=== PATIENT | male | born 1960 | race Caucasian/White ===

== ENCOUNTER → 2018-06-25 16:17 | Outpatient (CLI) | payer OTHER, SELFPAY ==
[2018-06-25 17:50] LABS: PSA,Total - Annual Screen 1.05 ng/mL (0.00-4.00)
--- OUTSIDE RECORDS SUMMARY | 2018-09-27 05:09 | XMS RPT_ITS ---
:1960 Author Organization [facility] Care Team Providers Name Role Phone JOSÉ NGUYEN Attending Unavailable HERNÁN WALLER (EVAPORATOR) Attending Unavailable Jose Arias Attending Unavailable Jose Arias Referring Unavailable Haris Reyes Primary Care Unavailable PROBLEMS PROBLEMS No Problem Records FoundPROCEDURES PROCEDURES No Procedure Records FoundRESULTS RESULTS PSA,TOTAL - ANNUAL Collected: 06/25/2018 Status: F Source: [place] SCREEN 4:22 PM [facility] REPOSITORY TYPE CODE TESTS RESULT OUT OF RANGE REFERENCE UNITS LAB L501.9910 0.00-4.00 ng/mL Normal PSA,TOT 1.05 SCREEN Result Comment: This test was performed using the TPSA assay method for the [employer] chemistry system. Values obtained with different assay methods cannot be used interchangably. When changing PSA assays in the course of monitoring a patient, additional sequential testing should be carried out to confirm baseline values. Performed By: #### L501.9910 #### [facility] [address] [place], [address] CNOV Observed: 01/03/2018 Status: COMPLETED Source: [place] 9:00 AM [facility] REPOSITORY Office Visit (TALKMN) JOSEFA PHILLIPS ([id number]) 1960 M Date Time Provider Department 01/03/18 9:00 AM EHRNÁN WALLER (EVAPORATOR) TALKMN During your visit today, we recorded the following information about you: Hernán Waller, PHD CCC-EVAPORATOR, CCC/EVAPORATOR 01/03/2018 8:54 AM Signed [facility] Hernán Waller, Ph.D NAME: Josefa Phillips CLINIC NO: [id number] DATE OF SERVICE: January 03, 2018 IMPRESSION AND PLAN: Mr. 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 He has been asymptomatic, and voice has been stable. We have been following him for a leucoplakia patch on the right vocal fold. Stroboscopy shows that there is a small area of leukoplakia on the posterior aspect of the right vocal fold. This is less noticeable than it was in February 2017. Mucosal waves on the right side are significantly decreased, but have not changed as when compared with his previous exams. ? HISTORY OF PRESENT ILLNESS: This is a 57 year old patient seen in follow up. He is now close to 8 years following an endoscopic CO2 laser resection, for a right true vocal cord mass on Jul 06. 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 We last saw him in November 2015. 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 He states that his voice has been strong and stable. No changes in voice. He denies any symptoms. No dysphagia, no dyspnea, no sore throat, or otalgia. He continues with Prilosec 40mg once a day for reflux control. ? HNI - Voice Handicap Index: VHI Total Score : 29 (Score range: 0 - 120) VHI Physical Score : 14 (Score range: 0 - 40) VHI Functional Score : 9 (Score range: 0 - 40) VHI Emotional Score : 6 (Score range: 0 - 40) A higher score indicates greater voice disability. VOICE: Mildly hoarse and breathy, with mild strain. PAST MEDICAL HISTORY Diagnosis Date - Deviated septum - Malignant neoplasm of glottis (HCC) Current Outpatient Prescriptions on File Prior to Visit: Omeprazole 40 mg capsule Take 40 mg by mouth once daily. IMIPRAMINE HCL ORAL Take 1 tablet by mouth once daily. Omeprazole (PRILOSEC) 40 mg capsule Take 1 capsule by mouth twice daily. (Patient not taking: Reported on 01/03/2018 ) DOCOSAHEXANOIC ACID/EPA (FISH OIL ORAL) Take 1 capsule by mouth three times daily. doxazosin (CARDURA) 2 mg tablet Take 2 mg by mouth daily at bedtime. Benzonatate (TESSALON) 200 mg capsule Take 200 mg by mouth three times daily as needed for Cough. codeine-guaiFENesin (ROBITUSSIN AC) 10-100 mg/5 mL syrup Take 5-10 mL by mouth four times daily as needed for Cough. May cause drowsiness. multivitamin with minerals (MEN'S ONE DAILY) tablet Take 1 tablet by mouth once daily. CALCIUM CARBONATE/VITAMIN D3 (CALCIUM + D ORAL) Take by mouth once daily. No current facility-administered medications on file prior to visit. PROCEDURE: The patient was sprayed with 2% lidocaine and 1% phenylephrine. After an approximate amount of time for vasoconstriction and anesthesia to be achieved, a flexible fiberoptic laryngoscope was inserted into the nasal cavity, nasopharynx, down to the oropharynx. A laryngeal function study which included videoendoscopy with stroboscopy was performed. FINDINGS: Findings revealed that the epiglottis, AE folds, vallecula, and pyriform sinuses appeared normal. No cobblestoning or erythema was appreciated along the posterior oropharyngeal wall. Inspection of the larynx revealed that the subglottis was patent, no evidence of any stenosis was appreciated. Range of motion of the vocal folds is within normal limits bilaterally. He has a small area of leukoplakia on the posterior aspect of the right vocal fold. Mucosal waves on the right side are significantly decreased but consistent with previous exams. The scope was withdrawn and the patient tolerated the procedure well. ? I thoroughly reviewed the video with Josefa Phillips and Dr. Nguyen. ? Hernán Waller, PHD CCC-EVAPORATOR Theodora Lima 01/03/2018 8:54 AM Signed Intake information documented in the prior visit with Dr. Nguyen today. Referring Provider: SELF [200] Allergies As of Date: 01/03/2018 Noted Allergy Reaction LODINE (ETODOLAC) 06/24/2009 4 - Hives Comments: Joint pain Date Reviewed: 01/03/2018 Reviewed by: Luke (Rn) MYESHA Keene - Fully Assessed Primary Visit Diagnosis:Voice disturbance [R49.9] Other Visit Diagnosis:Carcinoma of true vocal cord (HCC) [C32.0] Prescriptions as of 01/03/2018 Sig: IMIPRAMINE HCL ORAL Take 1 tablet by mouth once d* OMEPRAZOLE 40 MG CAPSULE,MARYSOL* Take 1 capsule by mouth twice* Patient not taking: Reported on 01/03/2018 FISH OIL ORAL Take 1 capsule by mouth three* DOXAZOSIN 2 MG TABLET Take 2 mg by mouth daily at b* BENZONATATE 200 MG CAPSULE Take 200 mg by mouth three ti* CODEINE 10 MG-GUAIFENESIN 100* Take 5-10 mL by mouth four ti* MULTIVITAMIN WITH MINERALS TA* Take 1 tablet by mouth once d* * CALCIUM + D ORAL Take by mouth once daily. Problem List As Of Date 01/03/2018 Noted Resolved Carcinoma of True Vocal Cord [C32.0] INVALID FOR* History of laryngeal cancer [Z85.21] INVALID FOR* Voice disturbance [R49.9] INVALID FOR* Encounter Status:Closed by SRIDHAR BRAGA, HERNÁN on 01/03/18 CNOV Observed: 01/03/2018 Status: COMPLETED Source: [place] 8:45 AM [facility] REPOSITORY Office Visit (OTOLMN) JOSEFA PHILLIPS ([id number]) 1960 M Date Time Provider Department 01/03/18 8:45 AM JOSÉ NGUYEN OTNOE During your visit today, we recorded the following information about you: Luke Keene RN, RN 01/03/2018 8:18 AM Signed Tobacco Use: Never Was smoking cessation packet given? N/A - Patient is a non- smoker or quit >1 year ago. Was a referral initiated?N/A Patient is a non-smoker Referring Provider: SELF [200] Allergies As of Date: 01/03/2018 Noted Allergy Reaction LODINE (ETODOLAC) 06/24/2009 4 - Hives Comments: Joint pain Date Reviewed: 01/03/2018 Reviewed by: Luke Clark) MYESHA Keene - Fully Assessed Reason for Visit: Follow Up [171] Primary Visit Diagnosis:History of laryngeal cancer [Z85.21] Prescriptions as of 01/03/2018 Sig: OMEPRAZOLE 40 MG CAPSULE,MARYSOL* Take 40 mg by mouth once ericka* IMIPRAMINE HCL ORAL Take 1 tablet by mouth once d* FISH OIL ORAL Take 1 capsule by mouth three* DOXAZOSIN 2 MG TABLET Take 2 mg by mouth daily at b* MULTIVITAMIN WITH MINERALS TA* Take 1 tablet by mouth once d* * CALCIUM + D ORAL Take by mouth once daily. OMEPRAZOLE 40 MG CAPSULE,MARYSOL* Take 1 capsule by mouth twice* Patient not taking: Reported on 01/03/2018 BENZONATATE 200 MG CAPSULE Take 200 mg by mouth three ti* CODEINE 10 MG-GUAIFENESIN 100* Take 5-10 mL by mouth four ti* Medication notes this encounter DOXAZOSIN 2 MG TABLET >> Luke Keene RN, RN 01/03/2018 8:11 AM >> LUKE KEENE [facility] Jan 03, 2018 8:11 AM daily Problem List As Of Date 01/03/2018 Noted Resolved Carcinoma of True Vocal Cord [C32.0] INVALID FOR* History of laryngeal cancer [Z85.21] INVALID FOR* Voice disturbance [R49.9] INVALID FOR* Visit Notes: >> Luke Keene RN [facility] Jan 03, 2018 8:16 AM Status: Signed Tobacco Use: Never Was smoking cessation packet given? N/A - Patient is a non- smoker or quit >1 year ago. Was a referral initiated?N/A Patient is a non-smoker Encounter Status:Closed by JOSÉ NGUYEN MD on 01/04/18 PROGRESS Observed: 01/03/2018 Status: COMPLETED Source: [place] 8:29 AM [facility] [place] REPOSITORY O ID: [id number] Author: Theodora Lima Service: (none) Author Type: (none) Type: Progress Notes Filed: 01/03/2018 8:54 AM Note Text: Intake information documented in the prior visit with Dr. Nguyen today. PROGRESS Observed: 01/03/2018 Status: COMPLETED Source: [place] 8:27 AM [facility] REPOSITORY HNO ID: [id number] Author: Hernán (Lumber Inspector) MALENA Waller/TRIP Service: (none) Author Type: Speech Language Pathologist Type: Progress Notes Filed: 01/03/2018 8:54 AM Note Text: [facility] Hernán Waller, Ph.D NAME: Josefa Phillips [facility] NO: [id number] DATE OF SERVICE: January 03, 2018 IMPRESSION AND PLAN: Mr. 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 He has been asymptomatic, and voice has been stable. We have been following him for a leucoplakia patch on the right vocal fold. Stroboscopy shows that there is a small area of leukoplakia on the posterior aspect of the right vocal fold. This is less noticeable than it was in February 2017. Mucosal waves on the right side are significantly decreased, but have not changed as when compared with his previous exams. ? HISTORY OF PRESENT ILLNESS: This is a 57 year old patient seen in follow up. He is now close to 8 years following an endoscopic CO2 laser resection, for a right true vocal cord mass on Jul 06. 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 We last saw him in November 2015. 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 He states that his voice has been strong and stable. No changes in voice. He denies any symptoms. No dysphagia, no dyspnea, no sore throat, or otalgia. He continues with Prilosec 40mg once a day for reflux control. ? HNI - Voice Handicap Index: VHI Total Score : 29 (Score range: 0 - 120) VHI Physical Score : 14 (Score range: 0 - 40) VHI Functional Score : 9 (Score range: 0 - 40) VHI Emotional Score : 6 (Score range: 0 - 40) A higher score indicates greater voice disability. VOICE: Mildly hoarse and breathy, with mild strain. PAST MEDICAL HISTORY Diagnosis Date - Deviated septum - Malignant neoplasm of glottis (HCC) Current Outpatient Prescriptions on File Prior to Visit: Omeprazole 40 mg capsule Take 40 mg by mouth once daily. IMIPRAMINE HCL ORAL Take 1 tablet by mouth once daily. Omeprazole (PRILOSEC) 40 mg capsule Take 1 capsule by mouth twice daily. (Patient not taking: Reported on 01/03/2018 ) DOCOSAHEXANOIC ACID/EPA (FISH OIL ORAL) Take 1 capsule by mouth three times daily. doxazosin (CARDURA) 2 mg tablet Take 2 mg by mouth daily at bedtime. Benzonatate (TESSALON) 200 mg capsule Take 200 mg by mouth three times daily as needed for Cough. codeine-guaiFENesin (ROBITUSSIN AC) 10-100 mg/5 mL syrup Take 5-10 mL by mouth four times daily as needed for Cough. May cause drowsiness. multivitamin with minerals (MEN'S ONE DAILY) tablet Take 1 tablet by mouth once daily. CALCIUM CARBONATE/VITAMIN D3 (CALCIUM + D ORAL) Take by mouth once daily. No current facility-administered medications on file prior to visit. PROCEDURE: The patient was sprayed with 2% lidocaine and 1% phenylephrine. After an approximate amount of time for vasoconstriction and anesthesia to be achieved, a flexible fiberoptic laryngoscope was inserted into the nasal cavity, nasopharynx, down to the oropharynx. A laryngeal function study which included videoendoscopy with stroboscopy was performed. FINDINGS: Findings revealed that the epiglottis, AE folds, vallecula, and pyriform sinuses appeared normal. No cobblestoning or erythema was appreciated along the posterior oropharyngeal wall. Inspection of the larynx revealed that the subglottis was patent, no evidence of any stenosis was appreciated. Range of motion of the vocal folds is within normal limits bilaterally. He has a small area of leukoplakia on the posterior aspect of the right vocal fold. Mucosal waves on the right side are significantly decreased but consistent with previous exams. The scope was withdrawn and the patient tolerated the procedure well. ? I thoroughly reviewed the video with Josefa Phillips and Dr. Nguyen. ? Hernán Waller, PHD CCC-EVAPORATOR PROGRESS Observed: 01/03/2018 Status: COMPLETED Source: [place] 12:00 AM [facility] REPOSITORY HNO ID: [id number] Author: José Nguyen Service: (none) Author Type: Physician Type: Progress Notes Filed: 01/07/2018 7:36 AM Note Text: [facility] José Nguyen M.D. NAME: JOSEFA PHILLIPS CLINIC NO: [id number] DATE OF SERVICE: 01/03/2018 Chief Complaint Oncologic surveillance. History of Present Illness Mr. Phillips returns in followup. 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 It has now been nine years since his surgery. He is continuing to do very well. He is speaking well without difficulty. He feels his voice has been quite strong. Videostroboscopy performed by Dr. Waller was reviewed in his presence. Examination His examination remains stable. The very area where that had been superficial leukoplakia has been less pronounced. He does still have very good mucosal wave that is present, different than the normal left side but still quite good. Medical Decision Making Diagnosis 1. Treatment Plan We will continue to follow him back in one year unless he should have difficulties, then will see him at a sooner point in time. JOSÉ NGUYEN M.D. JS/[id number] Audio #: [id number] Date Dictated: 01/03/2018 09:15:24 Date Typed: 01/04/2018 12:24:58 Date Revised: ALLERGIES ALLERGIES DATE TYPE / CODE NAME / CODE REACTION SEVERITY SOURCE 06/24/2009 DRUG ETODOLAC HIVES [facility] INGREDI/419 [facility] [id number](SNOM Repository ED CT) ENCOUNTERS ENCOUNTERS ADMIT/DISCHARGE ACCOUNT ADMITTING ENCOUNTER LOCATION SOURCE NUMBER CLASS 06/25/2018 [id number] [facility] ing:LAB Repository 01/03/2018/01/04/[id number] Repository 01/03/2018/01/08/[id number] Repository PAYERS PAYERS ENCOUNTER GUARANTOR PAYER SUBSCRIBER SOURCE 06/25/2018 JOSEFA Pang Primary Insurance:NAREN PHILLIPS[address] [facility] CORINNEB: [facility] GASTONKRISSY FAUSTINO, Number: [id number] [facility] [address]Pme: [id number] Repository Date:[id number] [id number], [place] [address]GK: CHECK WEBSITE 06/25/2018 [facility] Number: Effective Repository Date:2018-06-25
== END ==
PROVIDERS: Family Provider Family Medicine; PCP Family Medicine; Referring Provider Urology; Visit Provider Urology
DX: Z12.5 Encounter for screening for malignant neoplasm of prostate (principal)
CPT/HCPCS: 36415; 84153; G0103

== ENCOUNTER → 2019-01-29 14:27 | Outpatient (CLI) | payer OTHER, SELFPAY ==
--- NOTE | 2019-01-29 11:45 | LES_PTH ---
PATIENT: SCOTTY ROBLES LOC: [facility] U#:[id number] AGE/SX: 64/M ROOM: RE01/29/[address]: Dr. Haris Reyes MD : 1960 BED: DIS: SPEC #: [id number] RECD: 01/29/19 14:10 STATUS: LIAM TATIANA #: [id number] ИВАН: 01/29/19 11:[address]: Haris Reyes DEPT: SURGICAL PATHOLOGY RECD BY: Efra Torres Tissues: Skin of upper extremity and shoulder Procedures: Surgery Specimen Level IV HEADER OPERATION: Right shoulder shave biopsy PRE-OP DIAGNOSIS: Basal cell CA TISSUE SUBMITTED: Right shoulder shave biopsy MICROSCOPIC DIAGNOSIS Right shoulder lesion, shave biopsy: Basal cell carcinoma, nodular type, appears to be narrowly excised in the planes of sections examined (0.5 cm in greatest width). RAQUEL:trudi 01/31/19 COMMENT Case has been reviewed in consultation with Dr. Gant who concurs with the above diagnosis. IDC:AM MICROSCOPIC DESCRIPTION Slides are reviewed. GROSS DESCRIPTION Received in fixative is one container labeled with the patient's name and designated right shoulder. The specimen consists of a piece of stone-white skin measuring 1 x 0.5 x 0.2 cm. The specimen is inked and submitted entirely in one cassette. It will be serially sectioned at the time of embedding. / SJ:rg 01/30/19 TC:0 [facility]: [id number]
== END ==
PROVIDERS: Family Provider Family Medicine; PCP Family Medicine; Referring Provider Family Medicine; Visit Provider Family Medicine
DX: C44.612 Basal cell carcinoma of skin of right upper limb, including shoulder (principal)
CPT/HCPCS: 88305

== ENCOUNTER → 2019-05-22 09:40 | Outpatient (CLI) | payer OTHER, SELFPAY ==
--- NOTE | 2019-05-22 09:44 | RAD_ITS ---
STUDY: X-RAY - RIGHT SHOULDER REASON FOR EXAM: Male, 58 years old. Neck pain radiating into the shoulders. TECHNIQUE: 4 view(s) of the shoulder. COMPARISON: None. FINDINGS: Normal glenohumeral articulation. There is degenerative arthrosis of the acromioclavicular joint without inferior osseous spur formation. Normal acromion. There is no acute fracture, dislocation or destructive osseous pathology. Normal humeral head and visualized proximal humerus. The soft tissue structures are unremarkable. Normal visualized pulmonary apex. RAD/Shoulder min 2 Views IMPRESSION: Degenerative changes of the acromioclavicular joint. Electronically Signed: Cricket Crandall DO at 18:45 EST Tel [phone], Service support ,
--- NOTE | 2019-05-22 09:44 | RAD_ITS ---
STUDY: X-RAY - LEFT SHOULDER REASON FOR EXAM: Male, 58 years old. Neck pain radiating into the shoulders. TECHNIQUE: 4 view(s) of the shoulder. COMPARISON: Left clavicle, February 17, 2016. FINDINGS: There is moderate degenerative arthrosis of the glenohumeral articulation. Normal acromioclavicular joint. Normal acromion. There is no acute fracture, dislocation or destructive osseous pathology. There is demineralization of the humerus and visualized osseous structures. The soft tissue structures are unremarkable. Normal visualized pulmonary apex. RAD/Shoulder min 2 Views IMPRESSION: Stable degenerative changes of the left shoulder. Electronically Signed: Cricket Crandall DO at 17:25 EST Tel [phone], Service support ,
--- NOTE | 2019-05-22 09:44 | RAD_ITS ---
STUDY: X-RAY - CERVICAL SPINE REASON FOR EXAM: Male, 58 years old. Neck pain. Pain in the right shoulder. TECHNIQUE: 5 view(s) of the cervical spine were obtained. COMPARISON: None FINDINGS: There are degenerative changes of the anterior atlantoaxial articulation. Normal odontoid process. Normal cervical lordosis. There is multi-level endplate spondylosis. There is multi-level degenerative disc disease with multilevel disc space narrowing. This is most marked at C3-4 and C5-C6. There is neural foraminal narrowing on the left at C5-6. No other neural foraminal narrowing is noted. There is no evidence of acute fracture or loss of vertebral axial height. There is maintenance of normal alignment. The soft tissue structures are unremarkable. RAD/Cerv Spine 4 or 5 Views IMPRESSION: Degenerative changes of the cervical spine, as above. Electronically Signed: Cricket Crandall DO at 17:03 EST Tel [phone], Service support ,
== END ==
PROVIDERS: Family Provider Family Medicine; PCP Family Medicine; Referring Provider Family Medicine; Visit Provider Family Medicine
DX: M50.30 Other cervical disc degeneration, unspecified cervical region (principal); M47.812 Spondylosis without myelopathy or radiculopathy, cervical region; M50.31 Other cervical disc degeneration, high cervical region; M48.02 Spinal stenosis, cervical region; M19.011 Primary osteoarthritis, right shoulder; M19.012 Primary osteoarthritis, left shoulder
CPT/HCPCS: 72050; 73030

== ENCOUNTER → 2019-06-04 07:06 | Outpatient (CLI) | payer OTHER, SELFPAY ==
--- NOTE | 2019-06-04 07:12 | MRI_ITS ---
STUDY: MRI CERVICAL SPINE WITHOUT CONTRAST REASON FOR EXAM: Male, 58 years old. Degenerative disc disease and radicular symptoms to the left shoulder TECHNIQUE: Standardized fat and water weighted pulse sequences were obtained in the sagittal and axial planes. COMPARISON: Radiographs of the cervical spine dated May 22, 2019. FINDINGS: Normal foramen magnum and brainstem-cervical cord junction. Normal craniovertebral junction. Normal anterior atlantoaxial articulation. Normal odontoid process. Normal cervical lordosis. There is decreased height of the C4 and C5 vertebral bodies probably related to mild old compression fractures. The vertebral segments otherwise have normal height and alignment. C2-3: Normal endplates. Normal disc height, signal and morphology. Normal central canal and intervertebral neural foramina. C3-4: There is narrowing of this disc. There is severe left-sided neural foraminal narrowing with potential nerve root impingement. The right neural foramen is moderately narrowed. There is uncovertebral and facet joint arthropathy. There is no appreciable central canal stenosis. C4-5: There is a broad left central disc protrusion. There is mild central acquired canal stenosis. There is severe left-sided neural foraminal narrowing with potential nerve impingement. There is uncovertebral facet joint arthropathy. C5-6: There is narrowing of this disc. There is a broad central disc protrusion and osteophyte complex. There is severe left-sided neural foraminal narrowing with probable neural impingement. The right neural foramen is moderately narrowed. There is mild central acquired canal stenosis. C6-7: Normal endplates. Normal disc height, signal and morphology. Normal central canal and intervertebral neural foramina. C7-T1: Normal endplates. Normal disc height, signal and morphology. Normal central canal and intervertebral neural foramina. Normal cervical cord. There is no demonstrated cervical cord syrinx cavity. Normal visualized soft tissue structures. MRI/Spine Cervical (Routine) IMPRESSION: Multilevel degenerative disc disease and degenerative arthropathy of the cervical spine with neural foraminal narrowing and acquired canal stenosis, as described. Electronically Signed: Shannon Rodriguez MD at 4:54 EST , Service support ,
== END ==
PROVIDERS: Family Provider Family Medicine; PCP Family Medicine; Referring Provider Family Medicine; Visit Provider Family Medicine
DX: M50.30 Other cervical disc degeneration, unspecified cervical region (principal); M48.02 Spinal stenosis, cervical region
CPT/HCPCS: 72141

== ENCOUNTER → 2019-06-26 12:01 | Outpatient (CLI) | payer OTHER, SELFPAY ==
[2019-06-26 13:24] LABS: PSA,Total - Annual Screen 1.07 ng/mL (0.00-4.00)
== END ==
PROVIDERS: Family Provider Family Medicine; PCP Family Medicine; Referring Provider Urology; Visit Provider Urology
DX: Z12.5 Encounter for screening for malignant neoplasm of prostate (principal)
CPT/HCPCS: 36415; 84153; G0103

== ENCOUNTER 2019-06-30 12:30 | Outpatient (RCR) | payer OTHER, SELFPAY ==
--- NOTE | 2019-06-13 16:19 | HP.PTEVAL_ITS ---
Patient's Visit Information SCOTTY ROBLES is a 58 year old M referred to Physical Therapy by Weston Reyes MD with a diagnosis of CERVICAL SPINE STENOSIS. Date of Evaluation: 06/13/19 Physical Therapist: Santana Gallego, PT, Cert MDT, OCS - Visit Plan Frequency: 2x /Week Duration: 4 Weeks Plan: PT INTERVENTIONS POSTURAL EXS/RTC STRENGTHENING,MODALTIES , (trail) ICTX 15#-22# X15 MIN ,SHOULDER RTC /SCAP STENGTHENING - Subjective Findings: This 58 y/o male presents to physical therapy with cervical stenosis . Patient has cervical radiculopathy for about 1 year. Patient had MRI showed forminal severe stenosis ,protruding disc. Patient had PT in past exercises.Aggravating factors lifting with arms ,AM,sleeping ,sitting computer ,extension . Allevating factors exercises certain at gym. Denies parathesia/tingling.Denies CHANEY/nuasea/tinnutus. No MEDS. Patient pain affects job demands,houswork tasks . Patient symptoms affect QOL. SOCIAL: . HOBBIES: [employer]. VOCATION: [employer] - Pain Bilateral Neck Pain Intensity (Out of 10): 6 Pain Intensity Range: 10 - Objective POSTURE: mild foward posture. NEURO: denies parthesia/tingling ,reflexes C5-6-7 2/3. PALAPTION: unremarkable. AROM: BUE WFL pain right shoulder flexion/abd/ER. MMT: deltoid 4-/5 right mild pain ,RTC mild pain supraspinatous/infraspsinatous. CERVICAL ROM: flexion min loss,extension min loss,lateral flexion ,rotation mild/mod limited - Special Tests C/S Radiculapathy - Left Upper limb tension test: Negative C/S Radiculapathy - Right Upper limb tension test: Negative C/S Radiculapathy - Left Spurlings: Positive C/S Radiculapathy - Right Spurlings: Negative C/S Radiculapathy - Left Cervical distraction: Negative C/S Radiculapathy - Right Cervical distraction: Negative C/S Radiculapathy - Left Relief test: Negative C/S Radiculapathy - Right Relief test: Negative Sharp Rogers: Negative Vertebral Artery Test: Negative Alar Ligament Test: Negative R Shoulder Neer - Impingement: Positive R Shoulder Arteaga Abundio - Impingement: Positive - Goals Goal 1:: Patient to be Independant with HEP. Goal Time Frame: 4-6 Weeks Goal 2:: Patient to improve posture for ADL'S Goal Time Frame: 4-6 Weeks Goal 3:: Patient decrease cervical/right shoulder pain by 50% or > to improve function Goal Time Frame: 4-6 Weeks Goal 4:: Patient to increase cervical ROM for function of recovery Goal Time Frame: 4-6 Weeks Goal 5:: Patient to improve cervical owestry score by 5 points or> to improve function. Goal Time Frame: 4-6 Weeks - Rehabilitation Potential Physical Therapy Diagnosis: This patient has cervical spine foraminal stenosis worse on left side along with protrusion mod with pain right shoulder decrease ROM cervical spine along with RTC imingemnet. wilt trail ICTX Rehabilitation Potential: Good - Anticipated Interventions Patient/Client Instruction: Educate patient on: Condition, Plan of Care For the Purpose of:: To decrease pain, To increase ROM, To improve muscle performance and motor function, To increase tolerance to activity/condition/position, To improve ability of physical actions for home/community/work/leisure, To improve health of tissue, To decrease soft tissue restriction, To increase flexibility/ROM, To improve ability to perform tasks related to life management Therapeutic Exercise to Include: Strength training, Postural training, Flexibilty training, Active ROM For the Purpose of:: To decrease pain, To increase ROM, To improve muscle performance and motor function, To improve ability to perform ADL's, To increase tolerance to activity/condition/position, To improve ability of physical actions for home/community/work/leisure, To improve health of tissue, To decrease soft tissue restriction, To increase flexibility/ROM, To improve ability to perform tasks related to life management TENS: Yes IF ES: Yes Cryotherapy (ice pack, ice massage): Yes Thermo therapy (hot pack): Yes Ultrasound (thermal/non thermal): Yes Intermittent cervical traction: Yes For the Purpose of:: To decrease pain, To increase ROM, To improve nutrient delivery to tissue, To increase oxygenation perfusion, To improve health of tis carole, To decrease soft tissue restriction, To increase flexibility/ROM Thank you for the opportunity to evaluate your patient. For Medicare and Medicare HMO plans, please review the plan of care and approve it. It will need to be FAXED BACK to us at [phone] for Medicare purposes. For Medicare only, by signing this I certify the plan of care. Please let me know if there are questions or concerns regarding this plan of care. Physician Signature: Date:
--- NOTE | 2019-10-03 07:49 | HP.PTDCNRP_ITS ---
SCOTTY ROBLES was seen in my office for initial evaluation on 06/13/19. The following Plan of Care was established for this patient: Initial Frequency: 2x /Week Initial Duration: 4 Weeks Patient/Client Instruction: Educate patient on: Condition, Plan of Care For the Purpose of:: To decrease pain, To increase ROM, To improve muscle performance and motor function, To increase tolerance to activity/condition/position, To improve ability of physical actions for home/community/work/leisure, To improve health of tissue, To decrease soft tissue restriction, To increase flexibility/ROM, To improve ability to perform tasks related to life management Therapeutic Exercise to Include: Strength training, Postural training, Flexibilty training, Active ROM For the Purpose of:: To decrease pain, To increase ROM, To improve muscle perfor arpan and motor function, To improve ability to perform ADL's, To increase tolerance to activity/condition/position, To improve ability of physical actions for home/community/work/leisure, To improve health of tissue, To decrease soft tissue restriction, To increase flexibility/ROM, To improve ability to perform tasks related to life management TENS: Yes IF ES: Yes Cryotherapy (ice pack, ice massage): Yes Thermo therapy (hot pack): Yes Ultrasound (thermal/non thermal): Yes Intermittent cervical traction: Yes For the Purpose of:: To decrease pain, To increase ROM, To improve nutrient delivery to tissue, To increase oxygenation perfusion, To improve health of tissue, To decrease soft tissue restriction, To increase flexibility/ROM This patient was last seen in our office 06/30/19. Pertinent comments regarding their Physical therapy will appear below: This patient seen for PT for cervical stenosis with HEP with cervical /postural ex's. and Ictx,thus is d/c. At this point I will be discontinuing this patient from physical therapy. I would be happy to see this patient again in the future if found appropriate by the physician. Thank you! Santana Gallego, PT, Cert MDT, OCS
== END 2019-06-30 19:00 | disposition home or self-care (01) ==
LOC: PT 12:30
PROVIDERS: Family Provider Family Medicine; PCP Family Medicine; Referring Provider Family Medicine; Visit Provider Family Medicine
DX: M48.02 Spinal stenosis, cervical region (principal)
CPT/HCPCS: 97012; 97110; 97162

== ENCOUNTER → 2020-07-20 11:33 | Outpatient (CLI) | payer OTHER, SELFPAY ==
[2020-07-20 13:07] LABS: PSA,Total - Annual Screen 1.18 ng/mL (0.00-4.00)
== END ==
PROVIDERS: PCP Family Medicine; Referring Provider Urology; Visit Provider Urology
DX: Z12.5 Encounter for screening for malignant neoplasm of prostate (principal)
CPT/HCPCS: 36415; 84153; G0103

== ENCOUNTER 2020-10-22 08:18 | Day surgery (SDC) | payer OTHER, SELFPAY ==
[2020-10-22] VITALS (8 sets, daily range): BP systolic 85–128; BP diastolic 61–78; PULSE 53–72; RESP 16; TEMP 36.6–36.7; O2SAT 96–99; BMI 23.8
[2020-10-22] MEDS: Lactated Ringers 1,000 ML 100 ML IV (08:59)
--- NOTE | 2020-10-22 09:09 | H&P.OPEN ---
History of Present Illness Date of Admission: 10/22/20 The patient is a 60 year old M here for screening colonoscopy. The patient has last colonoscopy 10 years ago and it was normal. The patient does not have any abdominal pain or blood in his stool. He reports no blood thinners. He has no family history of colon cancer. Past Medical/Surgical History - Planned Operation Planned Operative Procedure/s: cscope open access Date of Operative Procedure: 10/22/20 Permit Signed: No S.O.S: No Is This Patient Having a Total Joint: No - Previous Hospitalizations/Surgeries HX Hospitalizations: No HX of Surgeries: cscope. vocal cord stripping for cancer. foot surgery. appendectomy Any Problems With Anesthesia: No You/Your Family Experience Fever (Hyperthermia) With Anes: No Cholinesterase deficiency: No - Cardiovascular Hx Chest Pain within Last 2 months: No Hx of Irregular Heartbeat and/or Afib: No Hx Heart Attack: No Hx Congestive Heart Failure: No Hx Rheumatic Fever: No Hx Hypertension: No Hx Internal Defibrillator: No Hx Pacemaker: No Hx Cardiac Catheterization: No Hx Cardiac Surgery/Stents/Etc.: No Hx Stress Test: No HX Edema: No Hx Pain in Legs when Walking/Leg Cramps: No - Respiratory Chronic Cough: No HX of Shortness of Breath: No Hoarseness: No Hx Chronic Obstructive Pulmonary Disease (COPD): No Hx Asthma: No Hx Emphysema: No Hx Sleep Apnea: No Hx Oxygen Use at Home: No Hx Respiratory Tract Infection/Cold (presently): No Do You Snore Loudly (louder than talking or can be heard): No Do You Often Feel Tired/ Fatigued/ Sleepy Dring Daytime?: No Has Anyone Observed You Stop Breathing During Sleep?: No Result (for STOP score): Negative Smoking Status: Never smoker - Gastrointestinal Hx Gastroesophageal Reflux: Yes Controlled With Meds: Yes Hx Gastrointestinal Disorders: No Hx Gastrointestinal Bleed: No Hx Ulcer: No Hx Hiatal Hernia: No Difficulty Chewing/Swallowing: No Recent Onset of Swallowing Problems: No Special diet followed at home: No Hx Unplanned Weight Loss of 20#: No HX Unplanned Weight Gain of 20#: No - Neurological Hx Seizures: No HX Syncope/Blackout Spells/Unconsciousness: No Hx CVA/Stroke: No Hx Transient Ischemic Attacks (TIA): No Hx Multiple Sclerosis: No Hx Parkinson's Disease: No Hx Head/Neck Injury: Yes - ddd Hx Headaches: No Hx Back Injury/Pain: No Recent Onset of Speech Difficulty: No Restless Legs: No Does patient have nerve stimulator: No Patient instructed to have device shut off: No Rep notified?: No - Blood Disorder Hx Leukemia: No Bleeding Tendencies: No Hx Deep Vein Thrombosis: No Hx High Cholesterol: No Blood Transmitted Disease: No Hx Hepatitis: No Hx Cirrhosis: No Hx Anemia: No Hx Blood Disorders: No - Genitourinary Hx Renal Disease: No - enlarged prostate/on med - Musculoskeletal Hx Arthritis: Yes Hx Rheumatoid Arthritis: No Hx Gout: No Recent Onset of an Orthopedic Problem: No - Endocrine Hx Diabetes: No Thyroid Disease: No Hx Steroid Therapy: No - Psycho/Social Hx Substance Use: No Hx Alcohol Use: Yes - social Hx Anxiety: No Hx Depression: No Mental Illness: No Hx Dementia: No - Miscellaneous Hx Cancer: Yes - VOCAL CORD , Recent Exposure to Contagious Disease: No Active MRSA: No Hx of C-Diff: No Any Loose Teeth: No - implants Allergies lodine Allergy (Uncoded 10/22/20 08:37) Rash - Discharge Is Pt Admitted From a [facility], or a Skilled Nursing: No After D/C, Where Do you Plan to Go: Return Home - Physical Exam Vitals/I&O's: Vital Signs Temp Pulse Resp BP Pulse Ox 97.8 F 72 16 128/61 H 96 10/22/20 08:55 10/22/20 08:55 10/22/20 08:55 10/22/20 08:55 10/22/20 08:55 Oxygen Delivery Method Room Air Weight: 180 lb 15.992 oz Body Mass Index (BMI) 23.8 General: Alert, Oriented x3 Neck: No JVD Lungs: Normal air movement Cardiovascular: Regular rate, Regular Rhythm Abdomen: Soft, Non Tender, Non-Distended Microbiology Past 72 Hours 10/21/20 08:30 Nasal Secretion SARS-CoV-2 Antigen (Rapid) - Final Current Medications Lactated Ringer's () 1,000 mls @ 100 mls/hr IV .Q10H VALARIE Last Admin: 10/22/20 08:59 Dose: 100 mls/hr Documented by: Assessment/Plan 60-year-old male here for screening colonoscopy I explained endoscopy in detail to the patient. I explained the risks including but not limited to stroke or heart attack with anesthesia, perforation of the GI tract, bleeding, infection. I explained that any of these could necessitate further emergency surgery. The patient understands and all questions were answered sufficiently. The patient wishes to proceed with procedure. Galen Ling MD Pager: [facility] [address] [place] [address] [address] [place] [address] Office: Surgery Risks - Colonoscopy Risks Include but are not Limited To: Risks include but are not limited to: Bleeding, perforation requiring further surgery, inability to complete colonoscopy requiring barium enema.
--- NOTE | 2020-10-22 10:11 | OP.CCLET_ITS ---
10/22/2020 Weston Reyes [address] [place] [address] Re : Colonoscopy procedure for Josefa Phillips Dear Dr. Reyes This procedure was performed on Thursday, October 22, 2020. My impressions and recommendations are as follows: Impressions : - The entire examined colon is normal on direct and retroflexion views. - No specimens collected. Recommendations : - Discharge patient to home. - Resume previous diet. - Continue present medications. - Repeat colonoscopy in 10 years for screening purposes. My findings are described in the full procedure note, which is enclosed. If I can be of further assistance, please feel free to contact me at Doctor phone number(s): , Work: . Sincerely, Galen Ling MD 10/22/2020 10:10:40 AM This report has been signed electronically.
--- NOTE | 2020-10-22 10:11 | OP.COLON_ITS ---
Patient Name: Josefa Phillips Procedure Date: 10/22/2020 9:12 AM Date of : 1960 Age: 60 Procedure: Colonoscopy Indications: Screening for colorectal malignant neoplasm Providers: Galen Ling MD Referring MD: Westno Reyes Medicines: Monitored Anesthesia Care Patient Profile: This is a 60 year old male. Refer to note in patient chart for documentation of history and physical. Last Colonoscopy: 10 years ago. Complications: No immediate complications. Procedure: Pre-Anesthesia Assessment: - Prior to the procedure, a History and Physical was performed, and patient medications and allergies were reviewed. The patient's tolerance of previous anesthesia was also reviewed. The risks and benefits of the procedure and the sedation options and risks were discussed with the patient. All questions were answered, and informed consent was obtained. Prior Anticoagulants: The patient has taken no previous anticoagulant or antiplatelet agents. ASA Grade Assessment: II - A patient with mild systemic disease. After reviewing the risks and benefits, the patient was deemed in satisfactory condition to undergo the procedure. After I obtained informed consent, the scope was passed under direct vision. Throughout the procedure, the patient's blood pressure, pulse, and oxygen saturations were monitored continuously. The colonoscope was introduced through the anus and advanced to the cecum, identified by appendiceal orifice and ileocecal valve. The colonoscopy was performed without difficulty. The patient tolerated the procedure well. The quality of the bowel preparation was good. Scope In: 9:24:37 AM Scope Withdrawal Time 0 hours 6 minutes 12 seconds Scope Out: 9:37:52 AM Total Procedure Duration Time 0 hours 13 minutes 15 seconds Findings: The entire examined colon appeared normal on direct and retroflexion views. Impression: - The entire examined colon is normal on direct and retroflexion views. - No specimens collected. Recommendation: - Discharge patient to home. - Resume previous diet. - Continue present medications. - Repeat colonoscopy in 10 years for screening purposes. Procedure Code(s): --- Professional --- 66361, Colonoscopy, flexible; diagnostic, including collection of specimen(s) by brushing or washing, when performed (separate procedure) Diagnosis Code(s): --- Professional --- Z12.11, Encounter for screening for malignant neoplasm of colon CPT copyright 2017 [employer]. All rights reserved. The codes documented in this report are preliminary and upon pharmacy tech review may be revised to meet current compliance requirements. Galen Ling MD 10/22/2020 10:10:40 AM This report has been signed electronically. Number of Addenda: 0 Note Initiated On: 10/22/2020 9:12 AM
== END 2020-10-22 10:42 | disposition home or self-care (01) ==
LOC: EN 08:19 → AC 08:19
PROVIDERS: PCP Family Medicine; Referring Provider Family Medicine; Visit Provider Surgery
PROC: 0DJD8ZZ Inspection of Lower Intestinal Tract, Via Natural or Artificial Opening Endoscopic (ICD-10-PCS; CPT 45378; principal; 2020-10-22 09:25)
DX: Z12.11 Encounter for screening for malignant neoplasm of colon (principal); K21.9 Gastro-esophageal reflux disease without esophagitis; N40.0 Benign prostatic hyperplasia without lower urinary tract symptoms; Z79.899 Other long term (current) drug therapy
CPT/HCPCS: 45378; 87426; C9803; J7120; J2405

== ENCOUNTER → 2020-10-25 07:05 | Outpatient (CLI) | payer OTHER, SELFPAY ==
[2020-10-22 08:55] VITALS: BMI 23.8
[2020-10-25 10:17] LABS: Cholesterol 241 mg/dL (200); High Density Lipoprotein 79 mg/dL; Triglycerides 39 mg/dL; Very Low Density Lipoprotein 8 mg/dL (5-40)
== END ==
PROVIDERS: PCP Family Medicine; Referring Provider Family Medicine; Visit Provider Family Medicine
DX: Z13.220 Encounter for screening for lipoid disorders (principal)
CPT/HCPCS: 36415; 80061

== ENCOUNTER → 2021-05-03 07:05 | Outpatient (CLI) | payer OTHER, SELFPAY ==
--- NOTE | 2021-05-03 07:09 | CT_ITS ---
STUDY: CT SOFT TISSUE NECK WITH CONTRAST REASON FOR EXAM: Male, 60 years old. VOCAL CORD CANCER. One-month history of sore throat. RADIATION DOSAGE (If Supplied By Facility): CTDIvol = ( 17.61 ) mGy, DLP = ( 576.49 ) mGycm TECHNIQUE: The patient was scanned in a multi-detector CT scanner. High resolution transaxial imaging was performed following intravenous administration of IV 75mL Isovue-370. Sagittal and coronal images were reconstructed. Individualized dose optimization techniques were used for this CT. COMPARISON: None. FINDINGS: Normal bilateral parotid glands. Normal bilateral birth certificate clerk spaces. Normal bilateral parapharyngeal spaces. Normal bilateral carotid spaces. Normal bilateral sublingual and submandibular glands and spaces. Normal visualized nasopharynx. Normal retropharyngeal space. Normal perivertebral space. Normal visualized bilateral faucial tonsils. The visualized tongue, tongue base and oropharynx are normal. The visualized cervical lymph nodes (levels I-) are within normal size limits, and maintain normal morphology. There is no demonstrated solid or cystic mass lesion. There is no abnormal contrast enhancement. Normal epiglottis, bilateral vallecula and hypopharynx. The pre-epiglottic and paraglottic adipose spaces are normal. Normal visualized bilateral piriform sinuses, aryepiglottic folds, vocal cords, and arytenoid-cricoid articulations. Normal subglottic trachea. Normal bilateral lobes of the thyroid gland. Normal visualized pulmonary apices. Mild degree of mucosal thickening of the maxillary sinuses bilaterally. There is multilevel degenerative changes of the cervical spine. There is evidence of an old avulsion fracture of the spinous processes of the C7 vertebrae in keeping with a ivette shovelers type fracture. CT/Soft Tissue Neck WITH Contrast IMPRESSION: Old avulsion fracture of the spinous processes of the C7 vertebrae. Electronically Signed: Jignesh Vela MD at 8:26 EDT , Service support ,
[2021-05-03 07:26] LABS: CREATININE FINGERSTICK 0.6 mg/dL (0.70-1.30); EGFR FINGERSTICK > 60.0000 mL/min (>60)
== END ==
PROVIDERS: PCP Family Medicine; Referring Provider Family Medicine; Visit Provider Family Medicine
DX: C32.0 Malignant neoplasm of glottis (principal); R10.13 Epigastric pain
CPT/HCPCS: 70491; Q9967

== ENCOUNTER → 2022-05-02 | Outpatient (CLI) | payer OTHER, SELFPAY ==
[2022-05-02 12:36] LABS: ALB/GLOB Ratio 1.2 RATIO (0.9-2.4); AST(SGOT) 20 U/L (15-37); Alanine Aminotransfer ALT/SGPT 22 U/L (16-61); Albumin, Serum 3.7 g/dL (3.2-5.0); Alkaline Phosphatase 68 U/L (45-117); Anion Gap 7 (5-15); BUN 20 mg/dL (7-18); BUN/Creat Ratio 20.7 RATIO (10-20); Calcium,Total 9.3 mg/dL (8.5-10.1); Chloride 107 mmol/L (98-107); Cholesterol 222 mg/dL (200); Creatinine, Serum 0.96 mg/dL (0.70-1.30); EST Glomerular Filtration Rate 84 mL/min (>60); Est Glom Filt Rate - Afr Amer 102 mL/min (>60); Globulin 3.2 g/dL (2.2-4.2); Glucose 86 mg/dL (74-106); High Density Lipoprotein 92 mg/dL; Potassium 4.5 mmol/L (3.5-5.1); Protein, Total 6.9 g/dL (6.4-8.2); Sodium Level 139 mmol/L (136-145); Triglycerides 35 mg/dL; Very Low Density Lipoprotein 7 mg/dL (5-40)
== END | disposition home or self-care (01) ==
LOC: MFPLAB 09:24
PROVIDERS: PCP Family Medicine; Referring Provider Family Medicine; Visit Provider Family Medicine
DX: Z00.00 Encounter for general adult medical examination without abnormal findings (principal); Z13.220 Encounter for screening for lipoid disorders
CPT/HCPCS: 36415; 80053; 80061

== ENCOUNTER → 2022-07-27 | Outpatient (CLI) | payer OTHER, SELFPAY ==
[2022-07-27 10:58] LABS: PSA,Total - Annual Screen 1.27 ng/mL (0.00-4.00)
== END | disposition home or self-care (01) ==
LOC: LAB 08:45
PROVIDERS: PCP Family Medicine; Referring Provider Urology; Visit Provider Urology
DX: Z12.5 Encounter for screening for malignant neoplasm of prostate (principal)
CPT/HCPCS: 36415; 84153; G0103

== ENCOUNTER → 2023-06-14 | Outpatient (CLI) | payer OTHER, SELFPAY ==
[2023-06-14 10:54] LABS: Anion Gap 1 (5-15); BUN 18 mg/dL (7-18); BUN/Creat Ratio 19.8 RATIO (10-20); Calcium,Total 8.9 mg/dL (8.5-10.1); Chloride 109 mmol/L (98-107); Cholesterol 222 mg/dL (200); Creatinine, Serum 0.91 mg/dL (0.70-1.30); EST Glomerular Filtration Rate 90 mL/min (>60); Est Glom Filt Rate - Afr Amer 109 mL/min (>60); Glucose 98 mg/dL (74-106); High Density Lipoprotein 78 mg/dL; Potassium 3.9 mmol/L (3.5-5.1); Sodium Level 140 mmol/L (136-145); Triglycerides 52 mg/dL; Very Low Density Lipoprotein 10 mg/dL (5-40)
== END | disposition home or self-care (01) ==
LOC: MTLAB 09:06
PROVIDERS: PCP Family Medicine; Referring Provider Family Medicine; Visit Provider Family Medicine
DX: Z13.1 Encounter for screening for diabetes mellitus (principal); Z13.220 Encounter for screening for lipoid disorders
CPT/HCPCS: 36415; 80048; 80061

== ENCOUNTER → 2023-08-06 | Outpatient (CLI) | payer OTHER, SELFPAY ==
[2023-08-06 09:46] LABS: PSA,Total - Annual Screen 1.77 ng/mL (0.00-4.00)
== END | disposition home or self-care (01) ==
LOC: LAB 08:14
PROVIDERS: PCP Family Medicine; Referring Provider Nurse Practitioner; Visit Provider Nurse Practitioner
DX: Z12.5 Encounter for screening for malignant neoplasm of prostate (principal)
CPT/HCPCS: 36415; 84153; G0103

== ENCOUNTER → 2024-03-05 | Outpatient (CLI) | payer OTHER, SELFPAY ==
[2024-03-05 18:10] LABS: Absolute Lymphocyte Count 1.85 X10^3/uL (0.83-4.51); Absolute Neutrophil Count 4.3 X10^3/uL (2.0-7.7); Basophil# 0.03 X10^3/uL; Basophil% 0.4 % (0-1); Eosinophils% 1.5 % (0-5); Hematocrit 41.1 % (40-54); Hemoglobin 13.5 g/dL (13.0-16.5); Lymphocyte # 1.85 X10^3/ul (0.83-4.51); Lymphocyte % 27.4 % (19-41); Mean Corp Hgb Conc 32.8 g/dL (32-36); Mean Corpuscular Hgb 30.1 pg (27.0-32.0); Mean Corpuscular Volume 91.7 fL (80-94); Mean Platelet Vol. 9.8 fl (6.2-12.0); Monocyte# 0.51 X10^3/uL; Monocyte% 7.5 % (0-10); NRBC Flagged by Analyzer 0 % (0-5); Neutrophil # 4.25 X10^3/uL (2.7-7.7); Neutrophil % 62.9 % (47-70); Platelet Count 287 K/mm3 (150-450); RBC Distribution Width CV 11.9 % (11.6-14.6); RBC Distribution Width SD 40.3 fl (35.1-43.9); Red Blood Count 4.48 M/mm3 (4.6-6.2); White Blood Count 6.8 K/mm3 (4.4-11.0)
[2024-03-05 18:31] LABS: Erythrocyte Sedimentation Rate 2 mm/hr (0-20)
[2024-03-05 18:45] LABS: ALB/GLOB Ratio 1.2 RATIO (0.9-2.4); AST(SGOT) 16 U/L (15-37); Alanine Aminotransfer ALT/SGPT 20 U/L (16-61); Albumin, Serum 3.7 g/dL (3.2-5.0); Alkaline Phosphatase 69 U/L (45-117); Anion Gap 7 (5-15); BUN 32 mg/dL (7-18); BUN/Creat Ratio 35.4 RATIO (10-20); Chloride 106 mmol/L (98-107); EST Glomerular Filtration Rate 90 mL/min (>60); Est Glom Filt Rate - Afr Amer 109 mL/min (>60); Globulin 3.1 g/dL (2.2-4.2); Glucose 113 mg/dL (74-106); Potassium 4.2 mmol/L (3.5-5.1); Protein, Total 6.8 g/dL (6.4-8.2); Sodium Level 139 mmol/L (136-145)
== END | disposition home or self-care (01) ==
LOC: MFPLAB 14:55
PROVIDERS: PCP Family Medicine; Visit Provider Family Medicine
DX: L29.9 Pruritus, unspecified (principal)
CPT/HCPCS: 36415; 80053; 84443; 85025; 85652

== ENCOUNTER → 2024-04-30 | Outpatient (CLI) | payer OTHER, SELFPAY ==
--- NOTE | 2024-04-30 14:48 | RAD_ITS ---
EXAM: XR CERVICAL SPINE, 4 OR 5 VIEWS CLINICAL INDICATION: pain TECHNIQUE: Frontal, lateral and bilateral oblique views of the cervical spine. COMPARISON: 05/22/2019 radiographs and 06/04/2019 MRI FINDINGS: VERTEBRAE: Multilevel facet, uncovertebral joint, and endplate osteophytosis. Multilevel endplate sclerosis. Reversal of expected cervical lordosis. Mild osseous encroachment of multiple neural foramina identified on oblique views particularly on the left at C6-C7. No spondylolisthesis. No fracture or traumatic subluxation. DISC SPACES: Multilevel intervertebral disc height loss. SOFT TISSUES: No significant abnormality. No prevertebral soft tissue widening. LUNG APICES: Clear. RAD/Cerv Spine 4 or 5 Views IMPRESSION: No fracture or traumatic subluxation. Multilevel degenerative changes, progressed since prior examination. Electronically Signed: Everardo Ely DO at 0:02 EDT ,
--- OUTSIDE RECORDS SUMMARY | 2024-04-30 18:40 | XMS RPT_ITS | CCD ---
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 Name Role Phone Unavailable Primary Care Provider HARIS Mina Referring Unavail able Allergies Allergy Classification Reported Allergen(s) Allergy Type Date of Onset Reaction(s) Facility (1 source) ALLERGIES NOT ON FILE; Translations: [ALLERGIES NOT ON FILE] Propensity to adverse reactions (disorder) [facility] Repository Results Test Name Value Interpretation Reference Range Facility CT CARDIAC SCORING WO IV CON TRASTon 08-29-2023 CT CARDIAC SCORING WO IV CONTRAST Interpreted By: Matteo Tong, STUDY: CT CARDIAC SCORING WO IV CONTRAST; 08/29/2023 8:36 am INDICATION: Signs/Symptoms:SCREEN ING. COMPARISON: None. ACCESSION NUMBER(S): [id number] ORDERING CLINICIAN: HARIS STINSON TECHNIQUE: Using prospective ECG gating, CT scan of the coronary arteries was performed without intravenous contrast. Coronary calcium scoring was performed according to the method of Agatston. FINDINGS: The score and distribution of calcium in the coronary arteries is as follows: LM 0 LAD 8.9 LCx 0 RCA 54 Total 64 The visualized mid/lower ascending thoracic aorta measures 3.6 cm in diameter. The heart is normal in size. No pericardial effusion is present. No gross evidence of mediastinal or hilar lymphadenopathy or masses is identified. The visualized segments of the lungs are normally expanded. The visualized subdiaphragmatic structures appear intact. IMPRESSION: 1. Coronary artery calcium score of 64*. *Coronary artery calcium scoring may be helpful in predicting the risk for future coronary heart disease events. According to the [place] [employer] Clinical Expert Consensus Task Force, such testing provides important prognostic information in patients with more than one coronary heart disease risk factor. The coronary artery calcium score correlates with the annual risk of a non-fatal myocardial infarction or coronary heart disease . Coronary artery score Annual Risk 0-99 0.4% 100-399 1.3% >400 2.4% These three breakpoints correspond to lower, intermediate and high risk states for future coronary events. Such information should be used, along with appropriate clinical judgment, to make decisions regarding the intensity of risk factor management strategies to treat blood lipids and to modify other non-lipid coronary risk factors. Reference: [place] P et al. Circulation. 2007; 115:402-426 MACRO: None Signed by: Matteo Tong 08/29/2023 4:55 PM Dictation workstation: [id number] [facility] CT for calcium scoring WO co ntrast and CTA W contrast IV Heart and coronary arterieson 08-29-2023 1. Coronary artery calcium score of 64*. *Coronary artery calcium scoring may be helpful in predicting the risk for future coronary heart disease events. According to the [place] [employer] Clinical Expert Consensus Task Force, such testing provides important prognostic information in patients with more than one coronary heart disease risk factor. The coronary artery calcium score correlates with the annual risk of a non-fatal myocardial infarction or coronary heart disease . Coronary artery score Annual Risk 0-99 0.4% 100-399 1.3% >400 2.4% These three breakpoints correspond to lower, intermediate and high risk states for future coronary events. Such information should be used, along with appropriate clinical judgment, to make decisions regarding the intensity of risk factor management strategies to treat blood lipids and to modify other non-lipid coronary risk factors. Reference: [place] P et al. Circulation. 2007; 115:402-426 MACRO: None Signed by: Matteo Tong 08/29/2023 4:55 PM Dictation workstation: [id number] MMODAL Interpreted By: Matteo Tong, STUDY: CT CARDIAC SCORING WO IV CONTRAST; 08/29/2023 8:36 am INDICATION: Signs/Symptoms:SCREEN ING. COMPARISON: None. ACCESSION NUMBER(S): [id number] ORDERING CLINICIAN: HARIS STINSON TECHNIQUE: Using prospective ECG gating, CT scan of the coronary arteries was performed without intravenous contrast. Coronary calcium scoring was performed according to the method of Agatston. FINDINGS: The score and distribution of calcium in the coronary arteries is as follows: LM 0 LAD 8.9 LCx 0 RCA 54 Total 64 The visualized mid/lower ascending thoracic aorta measures 3.6 cm in diameter. The heart is normal in size. No pericardial effusion is present. No gross evidence of mediastinal or hilar lymphadenopathy or masses is identified. The visualized segments of the lungs are normally expanded. The visualized subdiaphragmatic structures appear intact. [facility] MMODAL Matteo Tong MD - 08/29/2023 Interpreted By: Matteo Tong, STUDY: CT CARDIAC SCORING WO IV CONTRAST; 08/29/2023 8:36 am INDICATION: Signs/Symptoms:SCREEN ING. COMPARISON: None. ACCESSION NUMBER(S): [id number] ORDERING CLINICIAN: HARIS STINSON TECHNIQUE: Using prospective ECG gating, CT scan of the coronary arteries was performed without intravenous contrast. Coronary calcium scoring was performed according to the method of Agatston. FINDINGS: The score and distribution of calcium in the coronary arteries is as follows: LM 0 LAD 8.9 LCx 0 RCA 54 Total 64 The visualized mid/lower ascending thoracic aorta measures 3.6 cm in diameter. The heart is normal in size. No pericardial effusion is present. No gross evidence of mediastinal or hilar lymphadenopathy or masses is identified. The visualized segments of the lungs are normally expanded. The visualized subdiaphragmatic structures appear intact. IMPRESSION: 1. Coronary artery calcium score of 64*. *Coronary artery calcium scoring may be helpful in predicting the risk for future coronary heart disease events. According to the [place] [employer] Clinical Expert Consensus Task Force, such testing provides important prognostic information in patients with more than one coronary heart disease risk factor. The coronary artery calcium score correlates with the annual risk of a non-fatal myocardial infarction or coronary heart disease . Coronary artery score Annual Risk 0-99 0.4% 100-399 1.3% >400 2.4% These three breakpoints correspond to lower, intermediate and high risk states for future coronary events. Such information should be used, along with appropriate clinical judgment, to make decisions regarding the intensity of risk factor management strategies to treat blood lipids and to modify other non-lipid coronary risk factors. Reference: [place] P et al. Circulation. 2007; 115:402-426 MACRO: None Signed by: Matteo Tong 08/29/2023 4:55 PM Dictation workstation: [id number] [facility] Work Phone: Radiology Study observation (narrative) [facility] Work Phone: CT for calcium scoring WO co ntrast and CTA W contrast IV Heart and coronary arteriesOrdered By: Matteo Tong on 08-29-2023 [facility] Work Phone: Encounters Encounter Date Encounter Type Care Provider Facility Start: 08-29-2023 End: 08-30-2023 ambulatory HARIS STINSON [facility] Start: 08-29-2023 End: 08-30-2023 [facility]counter for general adult medical [facility]: 08-29-2023 End: 08-29-2023 Patient encounter status [address] Work Phone: Start: 08-29-2023 End: 08-29-2023 Subsequent hospital visit by physician [address] Comment on above: Encounter for genera l adult medical examination without abnormal findings Procedures Date Procedure Procedure Detail Performing Clinician Start: 08-29-2023 CT CARDIAC SCORING W O IV CONTRAST HARIS STINSON Start: 08-29-2023 Ct heart no contrast quant eval coronry calcium Haris Stinson MD Work Phone: Plan of Treatment Date Care Activity Detail Author Start: 12-27-2030 DTaP/Tdap/Td Vaccine s (3 - Td or Tdap) DTaP/Tdap/Td Vaccines (3 - Td or Tdap) [facility] Start: 03-09-2023 COVID-19 Vaccine ( season) COVID-19 Vaccine ( season) [facility] Start: 1978 Hepatitis C screening Hepatitis C [facility] Start: 1961 MMR Vaccines (1 of 1 - Standard series) MMR Vaccines (1 of 1 - Standard series) [facility] Start: 1960 HIV screening HIV Screening [facility] Start: 1960 Lipid panel Lipid Panel [facility] Start: 1960 Screening for malignant neoplasm of colon [facility] Start: 1960 Yearly Adult Physical Yearly Adult P hysical [facility] Payers Date Payer Category Payer Unknown [employer] [facility] [place] [employer] [facility] [id number] 2023-Present [address] [place] [address] [id number] 2023 Unknown [id number] 1960 Unknown [id number] Social History Date Type Detail Facility Tobacco smoking status NHIS Tobacco smoking consumption unknown [facility] Work Phone: Start: 1960 Sex Assigned At Not on file [facility] Work Phone: Gender identity Not on file [facility] Work Phone: Start: 08-19-2023 End: 08-29-2023 Exposure to SARS-CoV-2 (event) Not sure [facility] Evaluation note Note Date & Type Note Facility Evaluation note Diagnosis Encounter for general adult medical examination without abnormal findings documented in this encounter [facility] Work Phone: Reason for Referral Specialty Diagnoses / Procedures Referred By Rito harvey Referred To Contact Radiology Diagnoses Encounter for general adult medical examination without abnormal findings Procedures CT cardiac scoring wo IV contrast Haris Stinson MD [address] [place] [address] Referral ID Status Reason Start Date Expiration Date Visits Requested Visits Authorized [id number] Pending Review Perform Procedure 3 06/18/2024 1 1 Summary Purpose Family History No Family History Records Found Advance Directives No Advanced Directives Records Found Additional Source Comments Reason for Visit (unrecogniz ed section and content) Specialty Diagnoses / Procedures Referred By Rito harvey Referred To Contact Radiology Diagnoses Encounter for general adult medical examination without abnormal findings Procedures CT cardiac scoring wo IV contrast Haris Stinson MD [address] [place] [address] Referral ID Status Reason Start Date Expiration Date Visits Requested Visits Authorized [id number] Pending Review Perform Procedure 3 06/18/2024 1 1 (unrecognized sect ion and content) No Status Records Found INFORMATION SOURCE (unrecogn ized section and content) DATE CREATED AUTHOR 09/05/[address] [facility] FOR RECORDS PERTAINING TO PATIENTS WHO ARE OR HAVE BEEN ENROLLED IN A CHEMICAL DEPENDENCY/SUBSTANCEABUSE PROGRAM, SOME INFORMATION MAY BE OMITTED. This clinical summary was aggregated from multiple sources. Caution should be exercised in using it in the provision of clinical care. This summary normalizes information from multiple sources, and as a consequence, information in this document may materially change the coding, format and clinical context of patient data. In addition, data may be omitted in some cases. CLINICAL DECISIONS SHOULD BE BASED ON THE PRIMARY CLINICAL RECORDS. [employer] provides no warranty or guarantee of the accuracy or completeness of information in this document.
== END | disposition home or self-care (01) ==
LOC: MTRAD 14:48
PROVIDERS: PCP Family Medicine; Referring Provider Family Medicine; Visit Provider Family Medicine
DX: M50.30 Other cervical disc degeneration, unspecified cervical region (principal)
CPT/HCPCS: 72050

== ENCOUNTER → 2024-05-26 | Outpatient (CLI) | payer OTHER, SELFPAY ==
--- NOTE | 2024-05-26 07:50 | MRI_ITS ---
STUDY: MRI CERVICAL SPINE WITHOUT CONTRAST REASON FOR EXAM: Male, 63 years old. spasms, DDD and ? stenosis C6 and C7 TECHNIQUE: Standardized fat and water weighted pulse sequences were obtained in the sagittal and axial planes. COMPARISON: 06/04/2019, x-ray 04/30/2024 FINDINGS: Normal foramen magnum and brainstem-cervical cord junction. Normal craniovertebral junction. Normal anterior atlantoaxial articulation. Normal odontoid process. There is straightening of the normal cervical lordosis. Normal vertebral bodies and posterior osseous elements. C2-3: Normal endplates. Normal disc height, signal and morphology. Normal central canal and intervertebral neural foramina. C3-4: Enlarging broad disc osteophyte complex which is now moderate in size produces moderate spinal stenosis with abutment of the central spinal cord and mild bilateral neural foraminal stenosis. C4-5: Normal endplates. Normal disc height, signal and morphology. Normal central canal and intervertebral neural foramina. C5-6: Worsening retrolisthesis of C5 on C6 now measuring 5 mm with a mild broad disc osteophyte complex produces moderate spinal stenosis with effacement of the right hemicord and mild bilateral neural foraminal stenosis. C6-7: Normal endplates. Normal disc height, signal and morphology. Normal central canal and intervertebral neural foramina. C7-T1: Mild bilateral disc osteophyte complex present mild spinal stenosis and mild bilateral neural foraminal stenosis. Normal cervical cord. Normal visualized soft tissue structures. MRI/Spine Cervical (Routine) IMPRESSION: Worsening degenerative disc disease as described above. Electronically Signed: Ta Kraus MD at 13:02 EST ,
== END | disposition home or self-care (01) ==
PROVIDERS: PCP Family Medicine; Referring Provider Family Medicine; Visit Provider Family Medicine
DX: M50.30 Other cervical disc degeneration, unspecified cervical region (principal)
CPT/HCPCS: 72141

== ENCOUNTER → 2024-08-07 | Outpatient (CLI) | payer OTHER, SELFPAY ==
[2024-08-07 09:30] LABS: PSA,Total - Annual Screen 2.22 ng/mL (0.00-4.00)
== END | disposition home or self-care (01) ==
LOC: LAB 08:24
PROVIDERS: PCP Family Medicine; Referring Provider Nurse Practitioner; Visit Provider Nurse Practitioner
DX: Z12.5 Encounter for screening for malignant neoplasm of prostate (principal)
CPT/HCPCS: 36415; 84153; G0103